=== PATIENT | male | born 1970 ===

== ENCOUNTER 2025-06-10 10:35 | Day surgery (SDC) | payer OTHER ==
[2025-06-08 09:30] LABS: BASO % 0.7 % (0.1-1.2); EOS # 0.13 (0.04-0.54); EOS % 1.9 % (0.7-7.0); LYMPH # 1.60 (1.18-3.74); LYMPH % 23.0 % (19.3-53.1); MEAN PLATELET VOLUME 10.20 fl (9.4-12.4); MONO # 0.63 (0.24-0.82); MONO % 9.1 % (4.7-12.5); NEUT # 4.52 (1.56-6.13); NEUT % 65.0 % (34.0-71.1); RED CELL DISTRIBUTION WIDTH 12.8 % (11.6-14.4)
[2025-06-08 09:39] LABS: URINE APPEARANCE Clear; URINE BILIRRUBIN Negative (NEGATIVE); URINE BLOOD Small; URINE COLOR Yellow; URINE GLUCOSE Negative (NEGATIVE); URINE KETONE Negative (NEGATIVE); URINE LEUKOCYTE Small; URINE NITRATE Negative; URINE PROTEIN Negative (NEGATIVE); URINE UROBILINOGEN 0.2 E.U./dl
[2025-06-08 09:43] LABS: URINE BACTERIA 18.0 uL (0.0-1933); URINE EPITHELIAL CELLS 1.6 uL (0.0-38.8); URINE RBC 61.3 uL (0.0-20.8); URINE WBC 61.6 uL (0.0-23.2)
[2025-06-08 09:54] LABS: INR 1.09
[2025-06-08 09:57] LABS: URINE CAST 0.00 uL (0.0-1.40)
[2025-06-08 10:01] LABS: BUN CREA RATIO 13.0 (7.0-25.0); CREATININE SERUM 2.06 mg/dL (0.70-1.30); GFR 33.95; GLUCOSE FASTING 127.0 mg/dL (65-100); OSMOLALITY SERUM 290.0 MOSM/KG (275-295)
[2025-06-08 10:42] VITALS: BP 133/87
[2025-06-08 11:09] LABS: COVID-19 AG NEGATIVE (NEGATIVE)
[~2025-06-10] VITALS: Ht 177.8 cm; Wt 95.3 kg
[~2025-06-10 10:35] MED LIST: ATACAND32 MG PO; CARVEDILOL ER40 MG; COQ-10100 MG; CRESTOR40 MG; DOXAZOSIN MESYLA2 MG PO; HORSE CHESTNUT300 M1; HYDROCHLOROTH12.5 M2 PO; INSPRA50 MG PO; OZEMPIC0.25 MG/02; TROMBONEX CAPS1 EACH
[2025-06-10] MEDS ORDERED: GENTAMICIN SULFATE 40 MG/ML VIAL ONE ×2 (12:22→12:31)
[2025-06-10] MEDS ORDERED: PHENAZOPYRIDINE HCL 100 MG TABLET PO ONE (13:45)
[2025-06-10] MEDS ORDERED: KETOROLAC TROMETHAMINE 30 MG VIAL IV ONE (13:45)
[2025-06-10] MEDS ORDERED: IOVERSOL 320 MG/ML - 50 ML VIAL IV ONE (13:52)
== END 2025-06-10 21:55 | disposition home or self-care (01) ==
LOC: CIR.AMB 10:35
PROVIDERS: ATTEND Urology
DX: N20.0 Calculus of kidney (principal)